=== PATIENT | female | born 1985 | race African-American/Black ===

== ENCOUNTER 2017-06-26 10:48 | Emergency (ER) | payer MEDICARE, MEDICAID ==
[~2017-06-26] VITALS: Ht 157.5 cm; Wt 72.4 kg
[~2017-06-26 10:48] MED LIST: INSU100I18 SQ; INSU100V8 SQ
[2017-06-26 10:56] VITALS: BP 119/82
[2017-06-26 11:57] LABS: PH, VENOUS 7.408 pH (7.320-7.420)
[2017-06-26 11:59] LABS: BASOPHILS # (AUTO) 0.03 x10^3/uL (0-0.1); BASOPHILS % (AUTO) 1 % (0-1); EOSINOPHILS # (AUTO) 0.05 x10^3/uL (0-0.4); EOSINOPHILS % (AUTO) 1 % (1-7); LYMPHOCYTES # (AUTO) 2.24 x10^3/uL (1-3.4); LYMPHOCYTES % (AUTO) 32 % (22-44); MD NO; MEAN CORPUSCULAR HEMOGLOBIN 27.1 pg (27.0-34.8); MEAN CORPUSCULAR HGB CONC 33.2 g/dL (32.4-35.8); MEAN CORPUSCULAR VOLUME 81.5 fL (80-100); MEAN PLATELET VOLUME 8.7 fL (7.4-10.4); MONOCYTES # (AUTO) 0.41 x10^3/uL (0.2-0.8); MONOCYTES % (AUTO) 6 % (2-9); NEUTROPHILS # (AUTO) 4.25 x10^3/uL (1.8-6.8); NEUTROPHILS % (AUTO) 61 % (42-75); PLATELET COUNT 343 x10^3/uL (130-400); RED BLOOD COUNT 4.66 x10^6/uL (3.82-5.3); RED CELL DISTRIBUTION WIDTH 16.8 % (9.6-15.2)
[2017-06-26] MEDS ORDERED: MORPHINE SULFATE 4 MG/ML, 1ML ONE ×2 (11:59→12:25)
[2017-06-26] MEDS ORDERED: FAMOTIDINE 20 MG/2 ML ONE (11:59)
[2017-06-26] MEDS ORDERED: MAALOX/HYOSCYAMINE/LIDOCAINE 45 ML BTL ONE (11:59)
[2017-06-26] MEDS ORDERED: SODIUM CHLORIDE FLUSH 10ML SYR IVF ONE (12:00)
[2017-06-26] MEDS ORDERED: MAALOX/HYOSCYAMINE/LIDOCAINE 45 ML BTL PO ONE (12:00)
[2017-06-26] MEDS ORDERED: FAMOTIDINE 20 MG/2 ML IVP ONE (12:00)
[2017-06-26] MEDS ORDERED: ONDANSETRON 2MG/ML, 2ML ONE (12:00)
[2017-06-26] MEDS ORDERED: SODIUM CHLORIDE 0.9% 1,000ML IVBOLUS ONE (12:00)
[2017-06-26] MEDS ORDERED: ONDANSETRON ODT 8 MG PO ONE (12:00)
[2017-06-26 12:11] LABS: ALANINE AMINOTRANSFERASE 21 U/L (12-78); ALBUMIN 3.6 g/dL (3.4-5.0); ANION GAP 8 mmol/L (5-15); CALCIUM 8.5 mg/dL (8.5-10.1); CHLORIDE 98 mmol/L (98-107); CREATININE 0.85 mg/dL (0.55-1.02)
[2017-06-26] MEDS ORDERED: DIPHENHYDRAMINE 50 MG/ML, 1ML ONE (12:13)
[2017-06-26 12:15] LABS: ALKALINE PHOSPHATASE 80 U/L (45-117); BILIRUBIN,TOTAL 0.2 mg/dL (0.2-1.0); TOTAL PROTEIN 8.2 g/dL (6.4-8.2)
[2017-06-26] MEDS: MORPHINE SULFATE 4 MG/ML, 1ML IVPush PRN ×2 (12:17→12:28)
[2017-06-26 12:24] LABS: ACETONE, SERUM Negative (Negative)
[2017-06-26] MEDS ORDERED: DIPHENHYDRAMINE 50 MG/ML, 1ML IV ONE (12:29)
[2017-06-26 12:30] LABS: MICROSCOPIC NOT IND
[2017-06-26 12:33] LABS: CULTURE INDICATED? NO
[2017-06-26] MEDS ORDERED: INSULIN REGULAR 100 UNITS/ML, 3ML VIAL SQ-INSULIN ONE (13:00)
[2017-06-26] MEDS ORDERED: PROMETHAZINE 25 MG/ML, 1ML ONE (13:25)
[2017-06-26] MEDS ORDERED: PROMETHAZINE 25 MG/ML, 1ML IM ONE (13:30)
== END 2017-06-26 15:28 | disposition home or self-care (01) ==
LOC: ED 11:00
DX: R10.84 Generalized abdominal pain (principal); R11.2 Nausea with vomiting, unspecified; F12.10 Cannabis abuse, uncomplicated; E11.65 Type 2 diabetes mellitus with hyperglycemia; Z79.84 Long term (current) use of oral hypoglycemic drugs; Z88.0 Allergy status to penicillin; Z88.8 Allergy status to other drugs, medicaments and biological substances
CPT/HCPCS: 36415; 80053; 81003; 82010; 82803; 82962; 84703; 85025; 96372; 96374; 96375; 99284; J1200; J7030; Q0162; S0028